=== PATIENT | male | born 1960 | race Caucasian/White ===

== ENCOUNTER → 2016-06-18 | Outpatient (CLI) | payer MEDICARE ==
[2014-10-26 11:00] VITALS: BP 118/81
[~2016-06-18] MED LIST: ASPI-482 PO; BACL10TA PO; CYAN10005 PO; IBUP200T43 PO; OXYC-323 PO; SERT100T PO; SERT100T8 PO
--- NOTE | 2016-06-19 | PAIN ---
DATE OF SERVICE: 06/18/2016 DIAGNOSES: 1. Lumbar radiculopathy with lumbar degenerative disk disease. 2. Post ____ laminectomy syndrome. HISTORY OF PRESENT ILLNESS: The patient is a 56-year-old male who returns for followup, last seen 10/2014, the patient had undergone lumbar epidural steroid injection at that time with very good results, is having pain now in the low back itself and into the right leg and also pain in the base of the neck and shoulders radiating as had previously, the patient has had previous cervical laminectomy, but no lumbar surgery. The patient did well with this injection again, this was 2 years ago almost and the pain has been returning significantly in the low back itself, especially into the right hip and leg mostly posteriorly on the right side of the thigh to the knee. The patient reports it is anywhere around 4-8 on a scale of 10. His neck and shoulder is becoming more noticeable with pain as well. The patient reports no new motor or sensory deficits or bowel or bladder incontinence, but still significant pain as noted. The patient reports it wakes him from sleep about 3 times at time, he has to reposition and take pain medicine to get out of bed, change positions to get any sleep and this is mainly from the low back itself. PAST MEDICAL HISTORY: Significant for hearing loss, double vision, dizziness, headaches, kidney stones, depression. PREVIOUS SURGERY: Include a cervical fusion in 2012, right wrist surgery, carpal tunnel on the right and left knee surgery. CURRENT MEDICATIONS: Updated and documented on the patient's chart. ALLERGIES: THE PATIENT IS ALLERGIC TO PENICILLIN. FAMILY HISTORY: Significant for degenerative disk disease and arthritis. SOCIAL HISTORY: The patient has quit smoking and drinks 3-4 alcoholic drinks in a weeks' period. The patient is not using any other illegal or illicit drugs or other substances. Lives in [place], [place] and is currently retired. REVIEW OF SYSTEMS: The patient's review of systems is positive for those items mentioned in history of present illness. All systems reviewed and otherwise negative. It is complete, full and well documented on the patient's chart. PHYSICAL EXAMINATION: VITAL SIGNS: The patient's blood pressure is 137/84, pulse 72, respirations are 18, temperature is 98.2 degrees Fahrenheit, height is 5 feet 9 inches, weight is 210 pounds. GENERAL: The patient is awake, alert, oriented, appropriate, very pleasant demeanor. HEENT: Shows normocephalic, atraumatic. Extraocular movements are intact and symmetrical. Oral cavity shows mucous membranes moist and pink. Dentition is intact. NECK: Shows anterior throat supple without palpable lymphadenopathy noted. Swallow reflex is symmetrical. Neck shows some limited rotational motion to just past 45 degrees right and left as well as some minor pain with extension, but with full forward flexion without significant difficulty or pain reported. CHEST: Shows normal on inspection. Breath sounds are clear to auscultation bilaterally. HEART: Shows S1 and S2 clear. ABDOMEN: Soft, nontender, nondistended. No palpable organomegaly. No rebound or guarding demonstrated. BACK: Shows spine grossly in the midline. Slight exaggeration of thoracic kyphosis and normal appearing lumbar lordotic curvature. Lumbar paraspinous musculature shows symmetrical on inspection with some moderate tenderness with palpation bilaterally in lumbar paraspinous musculature, but without radiation. No tenderness over the sacrum, sacroiliac regions or the spinous processes. The patient shows good rotation and motion of the lumbar spine, both laterally greater than 10 degrees right and left as well as extension greater than 10 degrees, forward flexion 45 degrees without significant pain reported. Lower extremities show deep tendon reflexes at 2+ in the patellar tendons. Motor exam is strong with dorsiflexion, extension, quadriceps and hamstring flexion rated at 5/5 and equal. Peripheral pulses are 1+ posterior tibial and dorsalis pedis pulses. No peripheral edema is noted. No clubbing, no cyanosis. Lower extremities are warm and dry to touch, equal in color and appearance. Options were discussed with the patient and the patient's old chart was reviewed as his current medication regimen and updated. Current review of systems updated again as noted. We will send the patient for an MRI scan of both the cervical and lumbar spines ____ significant increase in radicular symptoms in both these regions and the patient is wondering if there is anything that is changed over the years in both these regions. We did discuss potential interventional techniques depending on MRI results and he is interested in this as well. He also has to follow up with his neurosurgeon regarding his cervical surgery as he is having some increased symptoms as well in the cervical distribution and the upper extremities. The patient will follow up after MRI scan in approximately one week and we will discuss results at that time. FOZIA BENAVIDES MD DR: ADONIS/juan david JOB#: [id number] / [id number]
== END | disposition home or self-care (01) ==
LOC: PNCL 10:51
PROVIDERS: ATTEND Anesthesiology
DX: M51.16 Intervertebral disc disorders with radiculopathy, lumbar region (principal); M96.1 Postlaminectomy syndrome, not elsewhere classified
CPT/HCPCS: G0463

== ENCOUNTER → 2016-06-30 | Outpatient (CLI) | payer MEDICARE ==
[2014-10-26 11:00] VITALS: BP 118/81
[~2016-06-30] MED LIST changes: +GADOBUTROL 10 MMOL/10 ML VIAL IV ONE
--- NOTE | 2016-06-30 15:56 | RAD ---
INDICATION: Neck pain and bilateral hand numbness. TECHNIQUE: Sagittal T1, sagittal T2, sagittal STIR, sagittal postcontrast, axial T1, axial T2, axial T2 gradient, and axial postcontrast sequences are provided. 9 mL of intravenous Gadavist was administered without complication. Comparison is from November 27, 2013. FINDINGS: There is no change in alignment. There is fatty replacement of the endplates at several levels. 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 This measures up to 2 mm AP. Cervicomedullary junction is unremarkable. There is no pathologic enhancement. Degenerative findings but individual level are as follows: C2-C3: Disc osteophyte complex and uncinate process spurring are noted. Midline AP diameter of the thecal sac is narrowed to 9 mm. There is high-grade left foraminal narrowing. Right foraminal narrowing is at least [id number]. C3-C4: Facet hypertrophy is much greater on the left with mild left foraminal narrowing. There is probably a partial laminectomy on the left. C4-C5: There appears to be a partial laminectomy on the left. There is facet hypertrophy which is much greater on the left with bilateral uncinate process spurring also noted. There is probably at least moderate left and mild right foraminal narrowing. C5-C6: Disc osteophyte complex and uncinate process spurring are noted along with facet hypertrophy. Midline AP diameter of the thecal sac measures 12 mm. Foraminal narrowing is high-grade bilaterally. C6-C7: There is no canal or foraminal compromise. C7-T1: There is uncinate process spurring and facet hypertrophy with moderate right and mild left foraminal narrowing. Compared to prior study, findings are probably unchanged. IMPRESSION: 1. 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 This is stable. 2. Degenerative changes again noted throughout the cervical spine and similar to prior study. There is canal stenosis at C2-C3 and several levels of foraminal narrowing, greater on the left. Electronically signed by: Tan Anderson MD (06/30/2016 3:54 PM)
--- NOTE | 2016-06-30 16:05 | RAD ---
INDICATION: Right leg numbness. Low back pain. TECHNIQUE: Sagittal T1, sagittal T2, sagittal STIR, sagittal postcontrast, axial T1, axial T2, and axial postcontrast sequences are provided. 9 mL of intravenous Gadavist was administered without complication. Comparison is from January 26, 2014. FINDINGS: There is no change in alignment. There is fatty replacement of the endplates at several levels. There is probably an atypical hemangioma at T11. There is no worrisome marrow lesion. There is disc desiccation greatest at L3-L4. There is mild narrowing of disc height greatest at L5-S1. Conus medullaris is normal in signal intensity and in position. Prominent epidural fat is noted throughout the lumbar spine, greatest at the levels of L3-L5. There is no pathologic enhancement. There is subcutaneous edema. The numbering system assumes 5 lumbar type vertebral bodies. Findings by individual level are as follows: T12-L1: Minimal disc bulge and facet hypertrophy are noted without canal or foraminal compromise. L1-L2: There is minimal facet hypertrophy without canal or foraminal compromise. L2-L3: Minimal disc bulge and mild facet and ligamentum flavum hypertrophy are noted. There is prominent epidural fat. Midline AP diameter of the thecal sac is narrowed to 10 mm. There is no foraminal compromise. L3-L4: Disc bulge, facet and ligamentum flavum hypertrophy, and prominent epidural fat compresses the thecal sac down to a midline AP diameter of 7 mm. There is minimal CSF surrounding the nerve roots at this level. There is minimal foraminal narrowing. L4-L5: Minimal disc bulge and mild facet and ligamentum flavum hypertrophy are noted. There is prominent epidural fat. Midline AP diameter of the thecal sac is narrowed to 6-7 mm. Foraminal narrowing is mild. L5-S1: Disc osteophyte complex and facet hypertrophy are noted with minimal foraminal narrowing. IMPRESSION: 1. Degenerative disc disease and facet and ligamentum flavum hypertrophy again are noted throughout the lumbar spine. These findings are relatively stable compared to prior study. However, the degree of canal stenosis at L3-L4 and L4-L5 has increased, appears to predominantly be secondary to increased epidural lipomatosis. Electronically signed by: Tan Anderson MD (06/30/2016 4:01 PM)
== END | disposition home or self-care (01) ==
LOC: MRI 13:40
PROVIDERS: ATTEND Anesthesiology
DX: M51.16 Intervertebral disc disorders with radiculopathy, lumbar region (principal); E88.2 Lipomatosis, not elsewhere classified; M19.90 Unspecified osteoarthritis, unspecified site; F32.9 Major depressive disorder, single episode, unspecified; Z86.69 Personal history of other diseases of the nervous system and sense organs; Z87.442 Personal history of urinary calculi; Z72.89 Other problems related to lifestyle
CPT/HCPCS: 72156; 72158; A9585

== ENCOUNTER → 2016-07-16 | Outpatient (CLI) | payer MEDICARE ==
[2014-10-26 11:00] VITALS: BP 118/81
[~2016-07-16] MED LIST changes: -GADOBUTROL 10 MMOL/10 ML VIAL IV ONE
--- NOTE | 2016-07-17 03:57 | PAIN ---
DATE OF SERVICE: 07/16/2016 DIAGNOSES: Lumbar radiculopathy with lumbar degenerative disk disease. HISTORY OF PRESENT ILLNESS: The patient is a 56-year-old male who returns for followup status post evaluation and MRIs ordered for cervical and lumbar distributions. We discussed these with him today in detail, were showing some degenerative disk changes in both films worse in the lumbar at L3-L4 and L4-L5 with slight increase from previous exam of 2014 and with the cervical spine showing degenerative changes worse at C2-C3, greater on the left. The patient reports still significant pain in the low back. His legs are doing better; however, he still has some radicular pain in the right lower extremity, but is having some knee pain as well and he has a brace he was using that was a friend of his, which helped temporarily, but did not fit him very well and is considering getting a new one that might fit better. The patient reports his back pain now is only a 4 on a scale of 10, where his knee pain is 10 on a scale of 10. The patient reports no new motor or sensory deficits, no new bowel or bladder incontinence or other complaints. PHYSICAL EXAMINATION: VITAL SIGNS: The blood pressure 129/82, pulse 76, respirations are 18, temperature is 98.2 degrees Fahrenheit, height is 5 feet 9 inches, weight is 209 pounds. GENERAL: The patient is awake, alert, oriented, appropriate, very pleasant demeanor. HEENT: Head shows normocephalic, atraumatic. Extraocular movements are intact and symmetrical. Oral cavity shows mucous membranes moist and pink. Dentition is intact. NECK: Shows anterior throat supple without palpable lymphadenopathy noted. Swallow reflex is symmetrical. CHEST: Shows normal on inspection. Breath sounds are clear to auscultation bilaterally. HEART: Shows S1 and S2 clear. No murmurs auscultated. ABDOMEN: Soft, obese, nontender, nondistended. No palpable organomegaly is noted. BACK: Shows spine grossly in the midline. Slight exaggeration of thoracic kyphosis, normal lumbar lordotic curvature. Lumbar paraspinous muscle shows some moderate tenderness with palpation in the middle and lower distribution of paraspinous muscles, but only diffusely without radiation. EXTREMITIES: Lower extremities show deep tendon reflexes at 2+ in the patellar, 1+ tendo calcaneus tendons. Motor exam is strong with dorsiflexion and extension rated at 5/5 and equal. Options were discussed with the patient and the patient's old chart was reviewed as his current medication regimen updated. Current review of systems updated today as well. We will hold on any injections at this time, the patient would like to get a better fitting right knee brace as he felt very good when he was wearing the other one, but it keeps falling off. The patient will return to clinic on an as needed basis. We did discuss possible interventional techniques for lumbar epidural steroid injection if the back pain is persistent. He would like to consider this in the future, but would like to try the knee brace first. We will have him followup at this time on an as needed basis. FOZIA BENAVIDES MD DR: ADONIS/juan david JOB#: [id number] / [id number]
== END | disposition home or self-care (01) ==
LOC: PNCL 10:17
PROVIDERS: ATTEND Anesthesiology
DX: M51.16 Intervertebral disc disorders with radiculopathy, lumbar region (principal)
CPT/HCPCS: G0463

== ENCOUNTER → 2016-09-11 | Day surgery (SDC) | payer MEDICARE ==
[~2016-09-11] MED LIST changes: +EPINEPHrine SYRINGE 1 MG/10 ML SYRINGE ONE; +HYDROmorphone 2 MG/ML VIAL IV PRN; +IV RINGERS,LACTATED 1000ML 1,000 ML IV SCH; +LIDOCAINE 1% 1 ML SYRINGE. ID PRN; +LIDOCAINE 2% PF Vial for OR 5 ML VIAL. ONE; +MORPHINE SULFATE 2 MG/ML DISP.SYRIN. IV PRN; +ONDANSETRON PF 4 MG/2 ML VIAL. IV PRN; +PROCHLORPERAZINE 10 MG/2 ML VIAL. IV PRN; +PROPOFOL 40 ML IV ONE; +fentaNYL PF VIAL 100 MCG/2 ML VIAL IV PRN
--- NOTE | 2016-09-14 13:53 | PATHOLOGY ---
PATHOLOGY REPORT * * * * * * * * FINAL DIAGNOSIS: A. Colon biopsies, ascending colon polyp: - Tubular adenoma. B. Colon biopsy, sigmoid colon polyp: - Tubular adenoma. COMMENT: There is no high grade dysplasia or evidence of malignancy. (JPM:mml; 09/14/2016) REPORT ELECTRONICALLY SIGNED BY: Eber Lal M.D. DATE/TIME: 09/14/2016 13:52 * * * * * * * * GROSS PATHOLOGY: A. Received in formalin labeled "Ren Calderon, ascending colon polyp," are multiple segments of gee soft tissue measuring from 0.1 up to 0.3 cm in maximum dimension. The specimen is submitted entirely in cassette A1. B. Received in formalin labeled "sigmoid colon polyp," is a 1.2 x 1.0 x 0.7 cm polypoid piece of gee soft tissue. The margin is inked and the tissue is sectioned perpendicular to the margin and submitted in its entirety in cassette B1. (JPM; 09/11/16) INITIAL CPT CODE(S): A; 83965 B; 45458 Professional services performed [place] [facility] [place] [address] Technical services performed by [facility] at [address] [place] [address] [address], [place] [address]. SPECIMEN(S) RECEIVED: A.Ascending colon polyp B.Sigmoid colon polyp CLINICAL HISTORY: Fecal incontinence PATIENT: REN CALDERON /AGE: 103/03/1960 (Age: 56) PATIENT #: [id number] ALT CASE #: SPECIMEN COLLECTION DATE: 09/11/2016 SPECIMEN RECEIVED DATE: 09/11/2016 [facility] - [address] [place] [address] - PHONE: [phone] * * * END OF REPORT * * *
== END | disposition home or self-care (01) ==
LOC: ENDOS 07:19
PROVIDERS: ATTEND Internal Medicine Gastroenterology
DX: Z12.11 Encounter for screening for malignant neoplasm of colon (principal); D12.0 Benign neoplasm of cecum; D12.5 Benign neoplasm of sigmoid colon; K64.0 First degree hemorrhoids; M19.90 Unspecified osteoarthritis, unspecified site; F32.9 Major depressive disorder, single episode, unspecified; Z88.0 Allergy status to penicillin; Z86.69 Personal history of other diseases of the nervous system and sense organs; Z87.442 Personal history of urinary calculi; Z87.39 Personal history of other diseases of the musculoskeletal system and connective tissue; Z72.89 Other problems related to lifestyle; Z72.0 Tobacco use
CPT/HCPCS: 45385; 88305; J0171; J2001; J2704

== ENCOUNTER → 2017-04-20 | Outpatient (CLI) | payer MEDICARE | END | disposition home or self-care (01) | LOC: KCIC MRI 11:26 | DX: M25.461 Effusion, right knee (principal); M22.41 Chondromalacia patellae, right knee; G89.29 Other chronic pain | CPT/HCPCS: 73721 ==

== ENCOUNTER → 2017-04-20 | Outpatient (CLI) | payer MEDICARE | END | disposition home or self-care (01) | LOC: KCIC MRI 11:17 | DX: M47.14 Other spondylosis with myelopathy, thoracic region (principal); M48.04 Spinal stenosis, thoracic region; M25.78 Osteophyte, vertebrae | CPT/HCPCS: 72146 ==

== ENCOUNTER → 2017-11-23 | Outpatient (CLI) | payer MEDICARE ==
[~2017-11-23] MED LIST changes: -EPINEPHrine SYRINGE 1 MG/10 ML SYRINGE ONE; -HYDROmorphone 2 MG/ML VIAL IV PRN; -IBUP200T43 PO; +IBUP200T44 PO; -IV RINGERS,LACTATED 1000ML 1,000 ML IV SCH; -LIDOCAINE 1% 1 ML SYRINGE. ID PRN; -LIDOCAINE 2% PF Vial for OR 5 ML VIAL. ONE; -MORPHINE SULFATE 2 MG/ML DISP.SYRIN. IV PRN; -ONDANSETRON PF 4 MG/2 ML VIAL. IV PRN; -PROCHLORPERAZINE 10 MG/2 ML VIAL. IV PRN; -PROPOFOL 40 ML IV ONE; -fentaNYL PF VIAL 100 MCG/2 ML VIAL IV PRN
--- NOTE | 2017-11-23 17:23 | KCIC ---
MRI Lumbar Spine without contrast History: Lumbar stenosis, low back pain for a couple of weeks worse the last few days Technique: Multiplanar, multi sequential noncontrast MR imaging was performed of the lumbar spine. Contrast: None Comparison: June 30, 2016 Findings: There is some motion degradation. Lumbar vertebral body stature is maintained. There is negligible anterior spondylolisthesis at L3-4 and L4-5. There is new edema of the anterior superior L2 endplate. There is again moderate to severe degenerative disc disease at L5-S1, mild to moderate degenerative disc disease at L3-4, and minimally L4-5. There is also degenerative disc disease of visualized inferior thoracic spine. Conus terminates at L1. There is somewhat diffuse narrowing of the lumbar spinal canal on a developmental basis. Focus of increased STIR signal of the posterior T11 vertebral body is not fully included although probably unchanged, possibly atypical hemangioma. There is again some edema of the left L5 pedicle and facet articulation likely reactive/degenerative in etiology. T12-L1: There is minimal disc osteophyte complex and bulge greater in the right lateral recess. There is mild prominence of posterior epidural fat and buckling of the ligamentum flavum as well as facet degenerative change. Spinal canal and neural foramina are adequate. L1-L2: There is mild prominence of posterior epidural fat, facet degenerative change, buckling of the ligamentum flavum. There is mild narrowing of the right neural foramen, left neural foramen adequate. Spinal canal is adequate. L2-L3: There is again mild buckling of the ligamentum flavum and [id number] facet degenerative change. There is prominence of posterior epidural fat. There is stable disc osteophyte complex and bulge. Spinal canal and neural foramina are overall adequate. L3-L4: There is moderate facet hypertrophic change and buckling of the ligamentum flavum. There is prominence of posterior epidural fat. There is new posterior bulge/broad protrusion with associated annular tear. There is mild increased indentation upon the ventral thecal sac. There is overall moderate spinal stenosis. There is mild narrowing of the inferior left neural foramen, right neural foramen adequate. L4-L5: There is moderate facet hypertrophic change and moderate to severe buckling of the ligament flavum. There is again prominence of epidural fat greater posteriorly in the right lateral recess. There is again near complete effacement subarachnoid space mostly from epidural lipomatosis. There is increased moderate to severe narrowing of left neural foramen, narrowing mostly from posteriorly by facet. Right neural foramen is overall adequate. L5-S1: There is prominence of epidural greater in the lateral recesses and posteriorly, some preserved subarachnoid space. There is again disc osteophyte complex/calcified protrusion, near the descending S1 nerve roots without displacement. There is mild neural foramina compromise bilaterally. Impression: 1. Comparing with the 2017 exam, there is new bulge/protrusion at L3-4. There is overall moderate spinal stenosis at L3-4. There is again near complete effacement of subarachnoid space at L4-5 due to epidural lipomatosis. There is again multilevel lumbar degenerative disc disease greatest at L5-S1. There is neural foramina compromise as stated greatest on the left at L4-5 which is greater than previously. Electronically signed by: Kedar Montano MD (11/23/2017 5:20 PM) [email or web address]
== END ==
LOC: KCIC MRI 15:41
DX: M48.062 Spinal stenosis, lumbar region with neurogenic claudication (principal); M51.37 Other intervertebral disc degeneration, lumbosacral region; M43.16 Spondylolisthesis, lumbar region; M85.88 Other specified disorders of bone density and structure, other site
CPT/HCPCS: 72148

== ENCOUNTER → 2017-12-16 | Outpatient (CLI) | payer MEDICARE ==
--- NOTE | 2017-12-16 13:06 | KCIC ---
MRI of the thoracic spine without contrast 12/16/2017 CLINICAL HISTORY: Mid back pain. History of thoracic spinal canal stenosis. TECHNIQUE: Unenhanced T1-weighted, T2-weighted and inversion recovery sagittal and T1-weighted and T2-weighted axial images of the thoracic spine were obtained. T2-weighted sagittal images of the cervical, thoracic and lumbar spine were obtained for localization purposes. FINDINGS: Comparison study is dated 04/20/2017. Mild S-shaped curvature of the thoracolumbar spine is seen. Degenerative signal changes and loss of height are seen involving all of the disks of the thoracic spine. Degenerative signal changes are seen within the marrow surrounding these discs. A small syrinx is seen within the spinal cord extending from the mid C6 level through the T1-2 level. It measures 2 mm in greatest diameter and is unchanged. There is no evidence of a Chiari I malformation. No additional area of abnormal signal intensity is seen involving the thoracic spinal cord. At the T1-2 disc space there is a mild generalized disc bulge. Degenerative changes are seen involving the facet joints, right greater than left. These findings do not result in significant central spinal canal stenosis. Mild to moderate right greater than left neural foraminal stenosis is seen. At the T2-3 disc space there is a mild generalized disc bulge. Degenerative changes are seen involving the facet joints, left greater than right. These findings do not result in significant central spinal canal stenosis. Mild left greater than right neural foraminal stenosis is seen. At the T3-4 disc space there is a mild to moderate generalized disc bulge. This is eccentric to the left. Degenerative changes are seen involving the facet joints bilaterally. There is prominence of the posterior epidural fat. These findings when combined efface the anterior posterior CSF resulting in mild central spinal canal stenosis without evidence of cord impingement. Mild left neural foraminal stenosis is seen. The right neural foramen is patent. At the T4-5 disc space there is a mild to moderate generalized disc bulge. This is eccentric to the left. Degenerative changes are seen involving the facet joints bilaterally. There is prominence of the posterior epidural fat. These findings when combined result in mild central spinal canal stenosis without evidence of cord impingement. No neural foraminal stenosis is seen. At the T5-6 disc space there is a mild to moderate generalized disc bulge. Superimposed on this disc bulge is a left paracentral disc osteophyte complex. This measures 5 mm in AP diameter. Degenerative changes are seen involving the facet joints bilaterally. There is prominence of the posterior epidural fat. These findings when combined result in moderate left greater than right central spinal canal with moderate cord impingement. Mild bilateral neural foraminal stenosis is seen. At the T6-7 disc space there is a mild generalized disc bulge. Degenerative changes are seen involving the facet joints bilaterally. There is prominence of the posterior epidural fat. These findings when combined result in mild to moderate central spinal canal stenosis without significant cord impingement. No neural foraminal stenosis is seen. At the T7-8 disc space there is a mild generalized disc bulge. Degenerative changes are seen involving the facet joints, right greater than left. These findings when combined with prominence of the posterior epidural fat result in mild central spinal canal stenosis without evidence of cord impingement. Mild right neural foraminal stenosis is seen. The left neural foramen is patent. At the T8-9 disc space there is a mild generalized disc bulge. Degenerative changes are seen involving the facet joints bilaterally. There is prominence of the posterior epidural fat. These findings when combined result in mild central spinal canal stenosis without evidence of cord impingement. No neural foraminal stenosis is seen. At the T9-T10 disc space there is a mild generalized disc bulge. Degenerative changes are seen involving the facet joints bilaterally. These findings when combined result in mild to moderate central spinal canal stenosis without evidence of cord impingement. No neural foraminal stenosis is seen. At the T10-11 disc space there is a mild generalized disc bulge. Degenerative changes are seen involving the facet joints bilaterally. There is prominence of the posterior epidural fat. These findings when combined do not result in significant central spinal canal or neural foraminal stenosis. At the T11-12 disc space there is a mild generalized disc bulge. Degenerative changes are seen involving the facet joints bilaterally. These findings do not result in significant central spinal canal or neural foraminal stenosis. Since the previous examination there has been no significant interval change. IMPRESSION: 1. A small syrinx is again seen involving the spinal cord extending from the mid C6 level through the T1-2 level, unchanged. 2. Degenerative changes are seen throughout the thoracic spine. These findings when combined with prominence of the posterior epidural fat result in multilevel central spinal canal and neural foraminal stenosis of varying severity as outlined above. Electronically signed by: Wally Pereira MD (12/16/2017 1:03 PM) [email or web address]
== END | disposition home or self-care (01) ==
LOC: KCIC MRI 08:33
PROVIDERS: ATTEND Neurological Surgery
DX: G95.0 Syringomyelia and syringobulbia (principal); M48.04 Spinal stenosis, thoracic region; E88.2 Lipomatosis, not elsewhere classified; M47.894 Other spondylosis, thoracic region
CPT/HCPCS: 72146

== ENCOUNTER → 2018-01-05 | Outpatient (CLI) | payer MEDICARE ==
[~2018-01-05] MED LIST changes: +GABA300C18 PO; -OXYC-323 PO; +OXYC1TAB15 PO; +TRAM50TA PO
[2018-01-05 13:56] LABS: BASO % 0 % (0-3); EOS # 0.1 x10^3/uL (0.0-0.7); EOS % 1 % (0-3); HEMATOCRIT 51.7 % (39.0-53.0); HEMOGLOBIN 17.9 g/dL (13.0-17.5); LYMPH # 1.7 x10^3/uL (1.0-4.8); LYMPH % 22 % (24-48); MEAN CORPUSCULAR HEMOGLOBIN 33 pg (25-35); MEAN CORPUSCULAR HGB CONC 35 g/dL (31-37); MEAN CORPUSCULAR VOLUME 96 fL (79-100); MONO # 0.5 x10^3/uL (0.0-1.1); MONO % 6 % (0-9); NEUT # 5.5 x10^3uL (1.8-7.7); NEUT % 71 % (31-73); PLATELET COUNT 181 x10^3/uL (140-400); RED BLOOD COUNT 5.42 x10^6/uL (4.30-5.70); WHITE BLOOD COUNT 7.8 x10^3/uL (4.0-11.0)
[2018-01-05 14:13] LABS: ALBUMIN 3.9 g/dL (3.4-5.0); CALCIUM 9.8 mg/dL (8.5-10.1); GFR 77.6; POTASSIUM 4.1 mmol/L (3.5-5.1); TOTAL BILIRUBIN 0.4 mg/dL (0.2-1.0); TOTAL PROTEIN 7.7 g/dL (6.4-8.2)
== END | disposition home or self-care (01) ==
LOC: SURGPAT 13:05
PROVIDERS: ATTEND Neurological Surgery
DX: Z01.818 Encounter for other preprocedural examination (principal); M48.061 Spinal stenosis, lumbar region without neurogenic claudication; E88.2 Lipomatosis, not elsewhere classified
CPT/HCPCS: 36415; 80053; 85025; 87641

== ENCOUNTER → 2018-05-06 | Outpatient (CLI) | payer MEDICARE ==
[2018-01-31 11:00] VITALS: BP 137/85
[~2018-05-06] MED LIST changes: +AMLO2.5T5 PO; +FOLI1TAB16 PO; +GADOBUTROL 10 MMOL/10 ML VIAL IV ONE; +METR250T PO; +OXYC10TA PO; +PANT20TA2 PO; +THIA100V3 IM
--- NOTE | 2018-05-06 15:41 | KCIC ---
EXAMINATION: Magnetic resonance imaging (MRI) of the cervical spine with and without contrast 05/06/2018 2:00 PM HISTORY: Cervical stenosis. TECHNIQUE: Multiplanar multi-weighted MRI of the cervical spine was performed with and without intravenous contrast using the standard cervical spine protocol. Contrast information: 9 cc gadolinium based contrast was administered intravenously. COMPARISON: CT cervical spine January 29, 2018, MRI cervical spine June 30, 2016 FINDINGS: Postoperative changes are identified from hemilaminectomy and medial facetectomy with complete left hemilaminectomy at C3, C5 and C6. There is dextroconvex rotoscoliosis of the cervical spine with a hemivertebra on the right at C4. There is partial osseous fusion of C3-C5 asymmetric to the left. Modic type II endplate degenerative changes are identified at T7. There is mild T2 signal hyperintensity involving the cervical cord at the C3 vertebral level, likely secondary to myelomalacia. There is a syrinx at the C7-T1 and T2-T3 level measuring 2-3 mm in maximal thickness. Posterior fossa is normal in appearance. Vertebral artery flow voids are maintained. There is no prevertebral soft tissue swelling. C2-C3: There is a posterior disc osteophyte complex asymmetric to the left. There is severe left and moderate right facet arthropathy. There is moderate left neuroforaminal stenosis. No spinal canal stenosis. C3 C5: Left hemilaminectomy changes are identified. There is decompression of the spinal canal. There is severe left facet arthropathy. There is mild left neuroforaminal stenosis. No spinal canal stenosis. C5-C6: There is a mild disc bulge. There is myelomalacia at this level within the central cord. There is no significant neuroforaminal stenosis. Moderate right and severe left facet arthropathy. No spinal canal stenosis. 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 Mild facet arthropathy. No neuroforaminal or spinal canal stenosis. IMPRESSION: There is dextroconvex rotoscoliosis of the cervical spine with a right hemivertebra at C4. Postoperative changes are identified from decompression of the thecal sac from C3 through C6. There is myelomalacia at the C3 level C6-C7 vertebral level. No residual spinal canal stenosis is identified. There is dilatation of the central ependymal canal versus a small syrinx at the upper thoracic spine measuring 2 mm maximal thickness. This finding is stable dating back to June 30, 2016. Electronically signed by: Snehal Vazquez MD (05/06/2018 3:38 PM) [facility]-KC[facility]
== END | disposition home or self-care (01) ==
LOC: KCIC MRI 13:35
PROVIDERS: ATTEND Neurological Surgery
DX: M48.02 Spinal stenosis, cervical region (principal); M41.82 Other forms of scoliosis, cervical region; G95.89 Other specified diseases of spinal cord; M12.88 Other specific arthropathies, not elsewhere classified, other specified site; M25.78 Osteophyte, vertebrae; Z98.890 Other specified postprocedural states; Z87.891 Personal history of nicotine dependence
CPT/HCPCS: 72156; A9585

== ENCOUNTER → 2020-09-16 | Outpatient (CLI) | payer MEDICARE ==
[2018-01-31 11:00] VITALS: BP 137/85
[~2020-09-16] MED LIST changes: +CYAN-25 PO; -CYAN10005 PO; -GADOBUTROL 10 MMOL/10 ML VIAL IV ONE; +SERT-268 PO; -SERT100T8 PO
--- NOTE | 2020-09-16 15:08 | KCIC ---
MR LUMBAR SPINE WO [id number] Date: 09/16/2020 12:15 PM Indication: LOW BACK PAIN. Prior surgery, prior imaging. Severe LBP, difficulty walking due to leg p ain and weakness. Comparison: 11/23/2017. Technique: Multi-planar multi-weighted magnetic resonance imaging of the lumbar spine was performed w ithout intravenous contrast using the standard lumbar spine protocol. FINDINGS: Trace anterolisthesis at L3-4 and L4-5. No acute fracture. Moderate multilevel degenerative disc raheel ccation and disc height loss. Multilevel fatty degenerative endplate changes and degenerative endplat e edema. The conus terminates at a normal level. No abnormal signal is seen within the visualized distal spina l cord. Redundancy of the nerve roots of the cauda equina at L1 and L2. No soft tissue abnormality in the visualized abdomen or pelvis. T10-11: Ligamentum flavum thickening. Mild spinal canal stenosis. No neural foraminal narrowing. T11-12: Disc bulge. Mild facet arthropathy. No spinal canal stenosis or neural foraminal narrowing. T12-L1: Disc bulge. Mild facet arthropathy. No significant spinal stenosis or neural foraminal narrow ing. L1-L2: Disc bulge. Mild facet arthropathy. Prominent epidural fat. Increased mild spinal stenosis. Mi ld right neural foraminal narrowing. L2-L3: Disc bulge. Mild facet arthropathy. Prominent epidural fat. Increased moderate spinal stenosis . Mild right neural foraminal narrowing. L3-L4: Posterior decompression. No spinal canal stenosis. Mild right and mild to moderate left neural foraminal narrowing. L4-L5: Posterior decompression. No spinal canal stenosis. Mild right and moderate left neural foramin al narrowing. L5-S1: Disc bulge. Mild facet arthropathy. No significant spinal stenosis. Mild bilateral neural fora haydee narrowing. IMPRESSION: 1. Lumbar spondylosis, progressed at L1-2 and L2-3. 2. Interval posterior decompression at L3-4 and L4-5 with no significant residual spinal canal stenos is. Electronically signed by: Kedar Wills MD (09/16/2020 3:06 PM) [id number]
== END ==
LOC: KCIC MRI 11:59
PROVIDERS: ATTEND Neurological Surgery
DX: M47.815 Spondylosis without myelopathy or radiculopathy, thoracolumbar region (principal); M47.817 Spondylosis without myelopathy or radiculopathy, lumbosacral region; M51.25 Other intervertebral disc displacement, thoracolumbar region; M51.27 Other intervertebral disc displacement, lumbosacral region; M48.04 Spinal stenosis, thoracic region; M48.07 Spinal stenosis, lumbosacral region
CPT/HCPCS: 72148

== ENCOUNTER → 2020-10-10 | Outpatient (CLI) | payer MEDICARE ==
[2018-01-31 11:00] VITALS: BP 137/85
[~2020-10-10] MED LIST changes: +ACET1TAB33 PO; +CARB1TAB22 PO; +CYCL10TA2 PO; +DICL100G4 TP; +FEXO1TAB27 PO; +FURO20TA3 PO; +HYDR12.58 PO; +IOHEXOL 180 MG/ML 10 ML VIAL. ONE; +KETO120S4 TP; +POTA10TA12 PO; +ROPI2TAB10 PO; +TRIH2TAB3 PO
--- NOTE | 2020-10-10 14:33 | PDOC1 ---
INITIAL PAIN CONSULT DATE OF SERVICE: DOS: DATE: 10/10/20 TIME: 14:25 CHIEF COMPLAINT: Chief Complaint: Low back and bilateral lower extremity pain HISTORY OF PRESENT ILLNESS: 60-year-old male presents history of pain in the low back bilateral lower extremities increased for the past 2 months are present for about 2 years. Patient reports that he had decompressive lumbar surgery 2018 also was diagnosed with Parkinson's disease at the same time with significant pain and weakness in the lower extremities patient reports that after the surgery pain was better and his function was better but the Parkinson's is now cause more weakness in the lower extremities patient reports his main complaint now is low back pain with pain radiating lower extremities mostly the posterior gluteus posterior thighs anterior thighs and medial thighs and groin as well. Patient reports it is slightly worse on the right most times patient reports a stabbing and shooting, throbbing sharp, with numbness and tingling in the low back and legs as well aching and dull. Patient reports no motor loss but significant fatigability of the lower extremities with the pain. Patient reports is better with sitting or lying down but awakens him from sleep occasionally but not most nights patient reports it can affect his bowel bladder control but no incontinence patient reports he does need assistance with walking and ambulating as it is most painful and is using a motorized wheelchair currently. Patient also has a walker which he uses when he is going shorter distances. Patient rates his disability rating 0-10 10 being worst is a 10 with family with recreation social activity occupation sexual waiver self-care and activities especially sleeping. Patient did have an MRI scan lumbar spine showing lumbar spondylosis progressed at L1-2 and L2-3 with interval posterior decompression L3-4 and L4-5 L2-3 and L3-4 show increased moderate spinal stenosis mild right neuroforaminal narrowing at L2-3 and L1-2 shows increased mild spinal stenosis mild right neuroforaminal narrowing as well with epidural lipomatosis. Patient has done physical therapy and is still doing the exercises as best he can however it was becoming more painful and he was unable to perform these earlier this year. Patient is taking gabapentin which does decrease the pain also hydrocodone which decreases the pain taking these twice daily. PAST MEDICAL HISTORY: PMH: Scoliosis, Parkinson's disease, blood clots PREVIOUS SURGERIES: Past Surgical Hx: Cervical laminectomy, carpal tunnel release bilaterally, lumbar laminectomy CURRENT MEDICATIONS: Current Meds: Active Scripts Medications Dose Route/Sig Max Daily Dose Days Date Category Flagyl (Metronidazole) 250 Mg Tablet 1 Tab PO TID 01/31/18 Rx Thiamine Hcl 100 Mg/1 Ml Vial 100 Mg IM DAILY 30 01/31/18 Rx Folic Acid 1 Mg Tablet 1 Mg PO DAILY 30 01/31/18 Rx Protonix (Pantoprazole Sodium) 20 Mg Tablet.dr 40 Mg PO DAILY 01/29/18 Reported Oxycodone Hcl Immed.release (Oxycodone Hcl) 10 Mg Tablet 10 Mg PO PRN Q4-6HRS PRN 01/29/18 Reported Baclofen 10 Mg Tablet 1 Tab PO TID 01/29/18 Reported Amlodipine Besylate 2.5 Mg Tablet 2.5 Mg PO DAILY 01/29/18 Reported Gabapentin (Gabapentin) 300 Mg Capsule 300 Mg PO TID 12/29/17 Reported Zoloft (Sertraline Hcl) 100 Mg Tablet 200 Mg PO DAILY 09/11/14 Reported ALLERGIES; Allergies: Coded Allergies: Penicillins (Verified Allergy, Severe, Itching, 01/10/18) itching hands and feet FAMILY HISTORY: Family Hx: No major medical problems or conditions that he is aware of. SOCIAL HISTORY: Social Hx: Patient drinks 3-4 alcoholic beverages a day does not smoke not use any illegal illicit or recreational drugs, is , lives with his spouse in [facility] REVIEW OF SYSTEMS: ROS: Positive for those items mentioned in history of present illness, all systems are reviewed, otherwise negative ,and are complete full and well-documented on patient's chart. PHYSICAL EXAM: VS: Blood pressure is 135/78 pulse 71 respirations 18 temperature 98.0 F height 5 feet 10 inches weight 232 pounds PE: PHYSICAL EXAMINATION: GENERAL: The patient is awake, alert, oriented, appropriate, very pleasant in demeanor, patient accompanied by his spouse. HEENT: Shows normocephalic, atraumatic. Extraocular movements are intact and symmetrical. Oral cavity: Mucous membranes moist and pink. Dentition is intact. NECK: Shows anterior throat supple without palpable lymphadenopathy noted. Swallow reflex symmetrical. CHEST: Shows normal on inspection. Breath sounds are clear bilaterally, distant but no rales rhonchi or wheezes auscultated. HEART: Shows S1, S2 clear. No murmurs auscultated. ABDOMEN: Soft, nontender, nondistended, obese. No palpable organomegaly is noted. No rebound or guarding demonstrated. BACK: Shows spine grossly in the midline. Normal-appearing cervical lordotic curvature. There is slightly increased thoracic kyphosis, some minor flattening of the lumbar lordotic curvature. Well-healed surgical scars noted in the midline. Lumbar paraspinous muscles show symmetrical on inspection, on palpation shows some moderate tenderness diffusely throughout the upper, middle and lower distribution of the paraspinous muscles bilaterally and also into the lower thoracic paraspinous musculature, firm and tender, but without specific trigger points, without radiation of pain. The patient has good rotational eulogio on of the lumbar spine, both laterally as well as extension and flexion without significant difficulty. No tenderness over the spinous processes, sacrum or sacroiliac regions. EXTREMITIES: Lower extremities show deep tendon reflexes 1+ in the patellar and tendo calcaneus tendons. Motor exam is 3-4 on a scale of 5 with right dorsiflexion, extension, quadriceps and hamstring flexion and 3-4/5 on the left. Peripheral pulses are 1 posterior tibial. 2+ peripheral edema is noted bilaterally. Lower extremities are warm and dry to touch, equal in color and appearance. Straight leg raise noted to be negative bilaterally. Gaenslen's an d Apolinar's maneuvers are negative as well. The patient is able to stand but requires significant assistance getting up from his electric wheelchair is able to ambulate has a widened gait and is unstable on his feet. SKIN: Shows warm and dry, good turgor. No edema. No sores, rashes or bruising throughout. IMPRESSION: Impression: 60-year-old male with 3-year history low back pain status post lumbar laminectomy with 2-month history increasing pain in the low back and bilateral lower extremities in a radicular fashion. MRI scan lumbar spine as noted History of Parkinson's disease Plan: Options were discussed with the patient patient spouse who accompanied him his visit today. We discussed continued physical therapy as well as medication management and interventional techniques. Patient elects interventional techniques. We discussed a lumbar epidural steroid injection using description as well as anatomical models to describe the procedure. Risks were discussed including but not limited to: Bleeding, infection, possibility of epidural hematoma and subsequent neurological compromise, dural puncture, headaches, spinal cord and/or nerve damage, side effects of steroid medication, and poor results regarding pain control. Patient understands and wished to proceed. Patient will return to the clinic in approximate 2 weeks for follow-up, was counseled as to return appointment, activity level, and side effect to be aware of. Procedure is lumbar epidural steroid injection under local anesthetic using sterile prep and drape at the L3-4 level using C-arm fluoroscopic guidance in both AP and lateral views medications injected is 120 mg Depo-Medrol +10mL preservative-free normal saline and 2 mL contrast- condition at discharge is stable patient tolerated procedure well had no complications. FOZIA BENAVIDES MD Oct 10, 2020 14:33
--- NOTE | 2020-10-10 14:34 | PDOC4 ---
Procedure Note: ICD 10 Code: ICD 10 Code: M54.16 M4 7.816 M51.36 M 96.1 Procedure Note: Patient was consented for lumbar epidural steroid injection with fluoroscopic guidance. Risks were discussed including but not limited to: Bleeding, infection, possibility of epidural hematoma and subsequent neurological compromi se, dural puncture, headaches, spinal cord and/or nerve damage, side effects of steroid medication, and poor results regarding pain control. Patient understands and wished to proceed. Procedure is lumbar epidural steroid injection under local anesthetic using sterile prep and drape at the L3-4 level using C-arm fluoroscopic guidance in both AP and lateral views medications injected is 120 mg Depo-Medrol +10mL preservative-free normal saline and 2 mL contrast- condition at discharge is stable patient tolerated procedure well had no complications. FOZIA BENAVIDES MD Oct 10, 2020 14:34
== END | disposition home or self-care (01) ==
LOC: PNCL 13:10
PROVIDERS: ATTEND Anesthesiology
DX: M54.5 Low back pain (principal); M47.26 Other spondylosis with radiculopathy, lumbar region; M51.36 Other intervertebral disc degeneration, lumbar region; M96.1 Postlaminectomy syndrome, not elsewhere classified; M79.605 Pain in left leg; M79.604 Pain in right leg; M19.90 Unspecified osteoarthritis, unspecified site; F32.9 Major depressive disorder, single episode, unspecified; Z79.899 Other long term (current) drug therapy; Z98.890 Other specified postprocedural states; Z87.891 Personal history of nicotine dependence; Z88.0 Allergy status to penicillin
CPT/HCPCS: 62323; Q9965

== ENCOUNTER → 2020-10-30 | Outpatient (CLI) | payer MEDICARE ==
[2018-01-31 11:00] VITALS: BP 137/85
--- NOTE | 2020-10-30 13:41 | PDOC4 ---
Procedure Note: ICD 10 Code: ICD 10 Code: M54.16 M51.36 7.816 Procedure Note: Patient was consented for lumbar epidural steroid injection with fluoroscopic guidance. Risks were discussed including but not limited to: Bleeding, infection, possibility of epidural hematoma and subsequent neurological compromise, dural puncture, headaches, spinal cord and/or nerve damage, side effects of steroid medication, and poor results regarding pain control. Patient understands and wished to proceed. Procedure is lumbar epidural steroid injection under local anesthetic using st erile prep and drape at the L3-4 level using C-arm fluoroscopic guidance in both AP and lateral views medications injected is 120 mg Depo-Medrol +10mL preservative-free normal saline and 2 mL contrast- condition at discharge is stable patient tolerated procedure well had no complications. FOZIA BENAVIDES MD Oct 30, 2020 13:41
--- NOTE | 2020-10-30 13:41 | PDOC ---
Progress Note - Pain Clinic Date of Service: DOS: DATE: 10/30/20 TIME: 13:37 Diagnosis: Dx: Lumbar radiculopathy with lumbar degenerative disease and lumbar spondylosis with lumbar postlaminectomy syndrome History or Present Illness: HPI: 60-year-old male returns for follow-up status post lumbar epidural straight injection x1. Patient reports his pain is decreased by about 30 to 40% overall and still improved patient reports he has still some significant pain in the low back itself in the bilateral lower extremities now his started to change with some new pain in the anterior thighs when it is mostly posterior previously patient reports a burning cramping and stabbing can be constant on and off in intensity rated a 10 on scale 10 is worse over the past week 8 on average for its least and is 8 today. Patient reports that while it is better he still has difficulty with mobility she does have some limited mobility secondary to Parkinson's disease and uses electric wheelchair for most of his mobility needs. Patient report is better with sitting or laying down and is not disturbing his sleep significantly patient reports no bowel or bladder continence changes. Patient does report continued constipation however. Physical Exam: VS: Blood pressure is 120/77 pulse 72 respirations 18 temperature 98.6 F height 5 foot 10 inches weight is 225 PE: PHYSICAL EXAMINATION: GENERAL: The patient is awake, alert, oriented, appropriate, very pleasant in demeanor, patient accompanied by his . HEENT: Shows normocephalic, atraumatic. Extraocular movements are intact and symmetrical. Oral cavity: Mucous membranes moist and pink. Dentition is intact. NECK: Shows anterior throat supple without palpable lymphadenopathy noted. Swallow reflex symmetrical. CHEST: Shows normal on inspection. Breath sounds are clear bilaterally, distant but no rales or rhonchi. HEART: Shows S1, S2 clear. No murmurs auscultated. ABDOMEN: Soft, nontender, nondistended, obese. No palpable organomegaly is noted. BACK: Shows spine grossly in the midline. Normal-appearing cervical lordotic curvature. There is slightly increased thoracic kyphosis, some minor flattening of the lumbar lordotic curvature, with well-healed midline surgical scar noted. Lumbar paraspinous muscles show symmetrical on inspection, on palpation shows some moderate tenderness diffusely throughout the upper, middle and lower distribution of the paraspinous muscles without specific trigger points, without radiation of pain. The patient has good rotational motion of the lumbar spine, both laterally as well as extension and flexion without significant difficulty. No tenderness over the spinous processes, sacrum or sacroiliac regions. EXTREMITIES: Lower extremities show deep tendon reflexes 1+ in the patellar and tendo calcaneus tendons. Motor exam is 3-4 on a scale of 5 with right dorsiflexion, extension, quadriceps and hamstring flexion and 3-4/5 on the left. Peripheral pulses are 1 posterior tibial. No peripheral edema is noted bilaterally. Lower extremities are warm and dry to touch, equal in color and appearance. SKIN: Shows warm and dry, good turgor. No edema. No sores, rashes or bruising throughout. Procedure: Procedure: Options discussed with the patient. Patient chart was reviewed as his current medication regimen updated current review of systems updated today as well. We will proceed with a lumbar epidural steroid injection today with fluoroscopic guidance. Risks were discussed including but not limited to: Bleeding, infection, possibility of epidural hematoma and subsequent neurological compromise, dural puncture, headaches, spinal cord and/or nerve damage, side effects of steroid medication, and poor results regarding pain control. Patient understands and wished to proceed. Patient will return to the clinic in approximate 2 weeks for follow-up, was counseled as to return appointment, activity level, and side effects beware. Medication Injected: Med Injected: Procedure is lumbar epidural steroid injection under local anesthetic using sterile prep and drape at the L3-4 level using C-arm fluoroscopic guidance in both AP and lateral views medications injected is 120 mg Depo-Medrol +10mL preservative-free normal saline and 2 mL contrast- condition at discharge is stable patient tolerated procedure well had no complications. Condition at Discharge: Condition at Discharge: Condition at discharge is stable, patient already the procedure well and had no complications. FOZIA BENAVIDES MD Oct 30, 2020 13:40
== END | disposition home or self-care (01) ==
LOC: PNCL 12:59
PROVIDERS: ATTEND Anesthesiology
DX: M51.16 Intervertebral disc disorders with radiculopathy, lumbar region (principal); M47.26 Other spondylosis with radiculopathy, lumbar region; M96.1 Postlaminectomy syndrome, not elsewhere classified; M19.90 Unspecified osteoarthritis, unspecified site; F32.9 Major depressive disorder, single episode, unspecified; Z87.891 Personal history of nicotine dependence; Z79.899 Other long term (current) drug therapy; Z98.890 Other specified postprocedural states; Z88.0 Allergy status to penicillin
CPT/HCPCS: 62323; Q9965

== ENCOUNTER → 2020-11-01 | Outpatient (CLI) | payer MEDICARE ==
[2018-01-31 11:00] VITALS: BP 137/85
[~2020-11-01] MED LIST changes: -IOHEXOL 180 MG/ML 10 ML VIAL. ONE
--- NOTE | 2020-11-01 10:40 | PDOC ---
Progress Note - Pain Clinic Date of Service: DOS: DATE: 11/01/20 TIME: 10:37 Diagnosis: Dx: Lumbar radiculopathy with lumbar degenerative disc disease and lumbar spondylosis with lumbar postlaminectomy syndrome History or Present Illness: HPI: Telemedicine visit today with identity verified with patient's date of as well as full name, total time spent: 11 minutes 60-year-old male via telemedicine visit today status post lumbar epidural steroid injection 922 with still significant pain in the low back and worse on the right side than the left into the hips and lower extremities. Patient reports it is slightly better today but still significant pain. Patient currently taking [id number] Tylenol which decrease the pain but only slightly. We discussed possibility of taking anti-inflammatory such as ibuprofen or naproxen and patient will consider this but would like to give it more time and we discussed that his only been 2 days since his procedure and it may be more painful before it is better. Patient understands and agrees and will wait patient was asked to follow-up in approximately 2 days with a progress report if not improved. Physical Exam: PE: FOZIA BENAVIDES MD Nov 01, 2020 10:40
== END | disposition home or self-care (01) ==
LOC: PNCL 10:21
PROVIDERS: ATTEND Anesthesiology
DX: M51.16 Intervertebral disc disorders with radiculopathy, lumbar region (principal); M47.26 Other spondylosis with radiculopathy, lumbar region; M96.1 Postlaminectomy syndrome, not elsewhere classified; M19.90 Unspecified osteoarthritis, unspecified site; F32.9 Major depressive disorder, single episode, unspecified; Z86.010 Personal history of colon polyps; Z87.891 Personal history of nicotine dependence; Z79.899 Other long term (current) drug therapy; Z72.89 Other problems related to lifestyle; Z98.890 Other specified postprocedural states; Z88.0 Allergy status to penicillin
CPT/HCPCS: G0463